=== PATIENT | female | born 1995 | race American Indian/Alaskan Native ===

== ENCOUNTER 2024-10-30 13:54 | Emergency (ER) | payer OTHER ==
[2024-10-30] MEDS: Ketorolac 30 MG/ML SDV IM ONE (14:48)
== END 2024-10-30 15:02 | disposition home or self-care (01) ==
LOC: KA.ED 13:59
DX: S93.504A Unspecified sprain of right lesser toe(s), initial encounter (principal); Z91.018 Allergy to other foods; W22.8XXA Striking against or struck by other objects, initial encounter
CPT/HCPCS: 73630-RT; 96372; 99283; J1885

== ENCOUNTER 2024-11-17 18:45 | Emergency (ER) | payer OTHER | END 2024-11-17 19:32 | disposition home or self-care (01) | LOC: KA.ED 18:45 | DX: H65.113 Acute and subacute allergic otitis media (mucoid) (sanguinous) (serous), bilateral (principal); Z91.018 Allergy to other foods; Z79.899 Other long term (current) drug therapy | CPT/HCPCS: 99282; 99283 ==

== ENCOUNTER 2024-12-21 20:38 | Emergency (ER) | payer OTHER | END 2024-12-21 21:29 | disposition home or self-care (01) | LOC: KA.ED 20:38 | DX: M20.012 Mallet finger of left finger(s) (principal); Z91.018 Allergy to other foods; Z79.899 Other long term (current) drug therapy | CPT/HCPCS: 73140-F3; 99283 ==